=== PATIENT | male | born 1945 | race Caucasian/White ===

== ENCOUNTER 2024-01-09 08:02 | Outpatient (OUT) | payer MEDICARE, OTHER, SELFPAY ==
--- NOTE | 2024-01-09 08:23 | XR_ITS ---
The [address] [address] Patient Name: CASI EASLEY MRN: [id number] date: 1945 Sex: M Assigned Patient Location: [facility] Current Patient Location: [facility] Accession/Order Number: [id number] Exam Date: 01/09/2024 08:58 Report Date: 01/09/2024 09:17 At the request of: ANISA FAIRBANKS Procedure: XR chest 2V EXAM: XR chest 2V HISTORY: Preop exam COMPARISON: None. TECHNIQUE: PA and lateral views of the chest. FINDINGS: The cardiomediastinal silhouette is normal. No focal consolidation is identified. There is no pneumothorax. No pleural effusion is noted. The osseous structures are intact. XR/XR chest 2V IMPRESSION: No acute cardiopulmonary process. Electronically authenticated by: THOM DICK Date: 01/09/2024 09:17
[2024-01-09 09:20] LABS: Anion Gap 14.1; BUN Creatinine Ratio 24.4; Calcium 8.8 mg/dL (8.5-10.1); Carbon Dioxide 25.8 mmol/L (21.0-32.0); Chloride 107 mmol/L (98-107); Estimated GFR (African America >60 (>=60); Estimated GFR (Non-African Ame 57 (>=60); Glucose 121 mg/dL (74-106); Potassium 3.9 mmol/L (3.5-5.1); Sodium 143 mmol/L (136-145)
[2024-01-09 09:23] LABS: Basophils Percent Auto 0.6 % (0.2-2.0); Eosinophils Absolute Auto 0.1 10^3/uL (0.0-0.7); Eosinophils Percent Auto 2.3 % (0.9-7.0); Hematocrit 38.7 % (42.0-54.0); Hemoglobin 12.4 g/dL (14.0-18.0); Immature Granulocytes Abs Auto 0.03 10^3/uL (0.00-0.03); Immature Granulocytes Pct Auto 0.6 % (0.0-0.5); Lymphocytes Absolute Auto 0.5 10^3/uL (1.2-3.8); Lymphocytes Percent Auto 9.4 % (20.5-60.0); Mean Corpuscular Hemoglobin 31.5 pg (25.9-34.0); Mean Corpuscular Volume 98.2 fL (80.0-94.0); Mean Platelet Volume 9.8 fL (9.5-13.5); Monocytes Absolute Auto 0.3 10^3/uL (0.3-0.8); Monocytes Percent Auto 7.1 % (1.7-12.0); Neutrophils Absolute Auto 3.8 10^3/uL (1.4-6.5); Platelet Count 141 10^3/uL (150-450); Red Blood Count 3.94 10^6/uL (4.70-6.10); Red Cell Distribution Width 13.2 % (11.0-15.0); White Blood Count 4.8 10^3/uL (4.0-11.0)
[2024-01-09 09:45] LABS: INR 1.13; Partial Thromboplastin Time 36.7 sec (22.3-36.2); Prothrombin Time 11.9 sec (9.0-11.6)
== END 2024-01-09 08:03 | disposition home or self-care (01) ==
LOC: PST 08:04
PROVIDERS: Visit Provider Urology
DX: Z01.810 Encounter for preprocedural cardiovascular examination (principal); Z01.812 Encounter for preprocedural laboratory examination; D07.5 Carcinoma in situ of prostate
CPT/HCPCS: 71046; 80048; 85025; 85610; 85730